=== PATIENT | male | born 1950 | race Caucasian/White ===

== ENCOUNTER 2021-08-02 23:47 | Inpatient (IN) | payer MEDICAID, OTHER ==
[~2021-08-02] VITALS: Ht 167.6 cm; Wt 71.7 kg
[2021-08-03] VITALS (7 sets, daily range): BP systolic 87–108; BP diastolic 53–80
[2021-08-03 00:27] LABS: BASOPHILS % 0.9 % (0.0-2.0); EOSINOPHILS % 0.9 % (0.0-5.0); HEMATOCRIT. 31.8 % (42.0-52.0); LYMPHOCYTES % 30.7 % (20.0-50.0); MEAN CORPUSCULAR HEMOGLOBIN 29.6 pg (28.0-32.0); MEAN CORPUSCULAR VOLUME 93.8 fL (80.0-94.0); MEAN PLATELET VOLUME 8.9 fl (7.4-10.4); MONOCYTES % 7.1 % (2.0-8.0); NEUTROPHILS % 60.4 % (40.0-76.0); PLATELET 260 x1000/uL (130-400); RED BLOOD CELL COUNT 3.39 mill/uL (4.7-6.1); RED CELL DISTRIBUTION WIDTH 19.3 % (11.6-14.6)
[2021-08-03 00:37] LABS: CHLORIDE 109 mEq/L (98-107)
[2021-08-03] MEDS ORDERED: NITROGLYCERIN OINT 1GM/INCH UDPKT TD ONE (01:00)
[2021-08-03] MEDS ORDERED: ASPIRIN 81MG TABLET PO ONE (01:00)
[2021-08-03] MEDS ORDERED: FUROSEMIDE 40MG/4ML VIAL IV ONE (01:00)
[2021-08-03 01:39] LABS: BG CARBOXYHEMOGLOBIN 0.3 % (0.5-1.5); BG DEOXYHEMOGLOBIN 0.7 % (0.0-5.0); BG FRACTION INSPIRED OXYGEN 100; BG HCO3 ACT 20.1 mmol/L (22.0-26.0); BG METHEMOGLOBIN 0.4 % (0.0-1.5); BG OXYGEN SATURATION 99.3 % (92.0-98.5); BG OXYHEMOGLOBIN 98.6 % (94.0-97.0); BG PCO2 37.1 mmHg (35.0-45.0); BG PH 7.351 (7.350-7.450); BG PO2 236.8 mmHg (75.0-100.0); BG SAMPLE SITE RIGHT RADIAL; BG TOTAL HEMOGLOBIN 10.5 g/dL (12.0-18.0); BG VENT MODE MASK - BIPAP
[2021-08-03 01:56] LABS: CLARITY URINE CLEAR (CLEAR); COLOR URINE YELLOW (YELLOW); KETONES URINE NEGATIVE (NEGATIVE); LEUKOCYTE ESTERASE URINE NEGATIVE (NEGATIVE); NITRITE URINE NEGATIVE (NEGATIVE); OCCULT BLOOD URINE NEGATIVE (NEGATIVE); PROTEIN URINE NEGATIVE (NEGATIVE); SPECIFIC GRAVITY URINE 1.009 (1.005-1.030); UROBILINOGEN URINE 0.2 E.U./dL (0.2-1.0)
[2021-08-03] MEDS ORDERED: ACETAMINOPHEN 325MG TABLET PO PRN ×2 (11:30)
[2021-08-03] MEDS ORDERED: LORAZEPAM 0.5MG TABLET PO PRN (11:30)
[2021-08-03] MEDS ORDERED: ONDANSETRON HCL 4MG/2ML INJ IV PRN (11:30)
[2021-08-03] MEDS ORDERED: HYDROCODONE/ACETAMINOPHEN 5/325MG TABLET PO PRN (11:30)
[2021-08-03] MEDS ORDERED: IPRATROPIUM/ALBUTEROL 0.5-3(2.5)MG/3ML NEB HHN PRN (11:30)
[2021-08-03] MEDS ORDERED: DOCUSATE SODIUM 100MG CAPSULE PO PRN (11:30)
[2021-08-03] MEDS ORDERED: CLONIDINE 0.1MG TABLET PO PRN (11:30)
[2021-08-03] MEDS ORDERED: DEXTROSE 50% WATER 50ML SYRINGE IV PRN (11:45)
[2021-08-03] MEDS ORDERED: NALOXONE HCL 0.4MG/ML VIAL IV PRN (12:00)
[2021-08-03] MEDS ORDERED: FLUTICASONE PROPIONATE 50MCG/SPRAY BOTTLE BOTHNSTRLS ONE (12:15)
[2021-08-03] MEDS: FUROSEMIDE 40MG/4ML VIAL IV SCH ×2 (12:33→17:40)
[2021-08-03] MEDS: INSULIN LISPRO 100 UNITS/ML SUBCUT SCH ×3 (12:45→20:57)
[2021-08-03] MEDS: BLOOD SUGAR DIAGNOSTIC STRIP TEST SCH ×3 (12:45→20:36)
[2021-08-03 14:30] LABS: METHADONE URINE SCREEN NEGATIVE (NEGATIVE)
[2021-08-03 14:31] LABS: *AMPHETAMINES SCREEN URINE NEGATIVE (NEGATIVE); CANNABINOID URINE SCREEN NEGATIVE (NEGATIVE); OPIATES URINE SCREEN NEGATIVE (NEGATIVE); PHENCYCLIDINE URINE SCREEN NEGATIVE (NEGATIVE)
[2021-08-03 14:32] LABS: *BARBITURATES SCREEN URINE NEGATIVE (NEGATIVE); *BENZODIAZEPINES SCREEN URINE NEGATIVE (NEGATIVE); *COCAINE SCREEN URINE NEGATIVE (NEGATIVE)
[2021-08-03] MEDS: FLUTICASONE PROPIONATE 50MCG/SPRAY BOTTLE BOTHNSTRLS SCH ×2 (15:07→22:54)
[2021-08-03] MEDS ORDERED: INFLUENZA VACCINE 05/PF 0.5 ML SYRINGE IM ONE (17:15)
[2021-08-03] MEDS ORDERED: ASPI-1497 PO (17:22)
[2021-08-03] MEDS ORDERED: FAMO20TA8 PO (17:23)
[2021-08-03] MEDS ORDERED: ATOR-2 PO (17:23)
[2021-08-03] MEDS ORDERED: FURO40TA5 PO (17:24)
[2021-08-03] MEDS: ASPIRIN 81MG EC TABLET PO SCH (17:41)
[2021-08-03] MEDS: IPRATROPIUM/ALBUTEROL 0.5-3(2.5)MG/3ML NEB HHN SCH (20:34)
[2021-08-03] MEDS: ATORVASTATIN CALCIUM 40MG TABLET PO SCH (20:36)
[2021-08-03 21:08] LABS: CREATINE KINASE MB FRACTION 2.6 ng/mL (0.5-3.6)
[2021-08-04] VITALS (12 sets, daily range): BP systolic 86–104; BP diastolic 33–70
[2021-08-04 04:58] LABS: BASOPHILS % 0.8 % (0.0-2.0); EOSINOPHILS % 1.3 % (0.0-5.0); HEMATOCRIT. 28.5 % (42.0-52.0); HEMOGLOBIN. 9.2 g/dL (14.0-18.0); LYMPHOCYTES % 22.4 % (20.0-50.0); MEAN CORPUSCULAR HEMOGLOBIN 29.6 pg (28.0-32.0); MEAN CORPUSCULAR VOLUME 91.2 fL (80.0-94.0); MEAN PLATELET VOLUME 9.2 fl (7.4-10.4); MONOCYTES % 10.8 % (2.0-8.0); NEUTROPHILS % 64.7 % (40.0-76.0); PLATELET 238 x1000/uL (130-400); RED BLOOD CELL COUNT 3.12 mill/uL (4.7-6.1); RED CELL DISTRIBUTION WIDTH 18.2 % (11.6-14.6)
[2021-08-04 05:08] LABS: PHOSPHORUS 4.2 mg/dL (2.5-4.9)
[2021-08-04] MEDS: FUROSEMIDE 40MG/4ML VIAL IV SCH ×2 (06:19→17:49)
[2021-08-04] MEDS: BLOOD SUGAR DIAGNOSTIC STRIP TEST SCH ×4 (07:30→21:50)
[2021-08-04] MEDS: INSULIN LISPRO 100 UNITS/ML SUBCUT SCH ×4 (08:00→21:50)
[2021-08-04] MEDS: IPRATROPIUM/ALBUTEROL 0.5-3(2.5)MG/3ML NEB HHN SCH ×5 (08:46→21:01)
[2021-08-04] MEDS: FLUTICASONE PROPIONATE 50MCG/SPRAY BOTTLE BOTHNSTRLS SCH ×2 (09:06→21:49)
[2021-08-04] MEDS: ASPIRIN 81MG EC TABLET PO SCH (09:06)
[2021-08-04] MEDS ORDERED: SPIR25TA6 MT (12:37)
[2021-08-04] MEDS: ATORVASTATIN CALCIUM 40MG TABLET PO SCH (21:49)
[2021-08-05] VITALS (12 sets, daily range): BP systolic 88–110; BP diastolic 43–68
[2021-08-05] MEDS: IPRATROPIUM/ALBUTEROL 0.5-3(2.5)MG/3ML NEB HHN SCH ×4 (01:06→20:08)
[2021-08-05] MEDS: BLOOD SUGAR DIAGNOSTIC STRIP TEST SCH ×4 (07:30→21:00)
[2021-08-05] MEDS: INSULIN LISPRO 100 UNITS/ML SUBCUT SCH ×5 (08:00→21:01)
[2021-08-05 08:25] LABS: BASOPHILS % 0.7 % (0.0-2.0); EOSINOPHILS % 1.8 % (0.0-5.0); HEMATOCRIT. 30.9 % (42.0-52.0); HEMOGLOBIN. 10.3 g/dL (14.0-18.0); LYMPHOCYTES % 19.3 % (20.0-50.0); MEAN CORPUSCULAR HEMOGLOBIN 29.5 pg (28.0-32.0); MEAN CORPUSCULAR VOLUME 88.9 fL (80.0-94.0); MEAN PLATELET VOLUME 8.9 fl (7.4-10.4); MONOCYTES % 10.8 % (2.0-8.0); NEUTROPHILS % 67.4 % (40.0-76.0); PLATELET 250 x1000/uL (130-400); RED BLOOD CELL COUNT 3.47 mill/uL (4.7-6.1); RED CELL DISTRIBUTION WIDTH 18.1 % (11.6-14.6)
[2021-08-05] MEDS: FUROSEMIDE 40MG/4ML VIAL IV SCH ×2 (09:41→18:41)
[2021-08-05] MEDS: ASPIRIN 81MG EC TABLET PO SCH (09:49)
[2021-08-05] MEDS: FLUTICASONE PROPIONATE 50MCG/SPRAY BOTTLE BOTHNSTRLS SCH ×2 (09:50→20:56)
[2021-08-05] MEDS: ATORVASTATIN CALCIUM 40MG TABLET PO SCH (20:55)
[2021-08-06] VITALS (8 sets, daily range): BP systolic 89–101; BP diastolic 54–72
[2021-08-06] MEDS: IPRATROPIUM/ALBUTEROL 0.5-3(2.5)MG/3ML NEB HHN SCH ×2 (07:23→13:30)
[2021-08-06] MEDS: BLOOD SUGAR DIAGNOSTIC STRIP TEST SCH ×2 (07:30→12:30)
[2021-08-06 07:54] LABS: BASOPHILS % 0.8 % (0.0-2.0); EOSINOPHILS % 3.2 % (0.0-5.0); HEMATOCRIT. 31.3 % (42.0-52.0); HEMOGLOBIN. 10.4 g/dL (14.0-18.0); LYMPHOCYTES % 19.9 % (20.0-50.0); MEAN CORPUSCULAR HEMOGLOBIN 29.6 pg (28.0-32.0); MEAN CORPUSCULAR VOLUME 88.9 fL (80.0-94.0); MEAN PLATELET VOLUME 8.8 fl (7.4-10.4); MONOCYTES % 11.9 % (2.0-8.0); NEUTROPHILS % 64.2 % (40.0-76.0); PLATELET 297 x1000/uL (130-400); RED BLOOD CELL COUNT 3.52 mill/uL (4.7-6.1); RED CELL DISTRIBUTION WIDTH 17.8 % (11.6-14.6)
[2021-08-06] MEDS: INSULIN LISPRO 100 UNITS/ML SUBCUT SCH ×2 (08:00→13:00)
[2021-08-06] MEDS: FLUTICASONE PROPIONATE 50MCG/SPRAY BOTTLE BOTHNSTRLS SCH (08:59)
[2021-08-06] MEDS: ASPIRIN 81MG EC TABLET PO SCH (08:59)
[2021-08-06] MEDS: FUROSEMIDE 40MG/4ML VIAL IV SCH (08:59)
== END 2021-08-06 21:54 | disposition home or self-care (01) | DRG 194 ==
LOC: EDBD 23:47 → ER 23:47 → 5EST 08-03 01:48 → ENRESERV 08-03 07:28
PROVIDERS: ADMIT Internal Medicine; ATTEND Internal Medicine
PROC: 5A09357 Assistance with Respiratory Ventilation, Less than 24 Consecutive Hours, Continuous Positive Airway Pressure (ICD-10-PCS; principal; 2021-08-03)
DX: I13.0 Hypertensive heart and chronic kidney disease with heart failure and stage 1 through stage 4 chronic kidney disease, or unspecified chronic kidney disease (principal); J96.01 Acute respiratory failure with hypoxia; E44.0 Moderate protein-calorie malnutrition; I27.20 Pulmonary hypertension, unspecified; I95.9 Hypotension, unspecified; N17.9 Acute kidney failure, unspecified; Z95.1 Presence of aortocoronary bypass graft; I69.354 Hemiplegia and hemiparesis following cerebral infarction affecting left non-dominant side; D64.9 Anemia, unspecified; S51.801A Unspecified open wound of right forearm, initial encounter; Z20.822 Contact with and (suspected) exposure to COVID-19; I25.5 Ischemic cardiomyopathy; E78.5 Hyperlipidemia, unspecified; I25.118 Atherosclerotic heart disease of native coronary artery with other forms of angina pectoris; D72.829 Elevated white blood cell count, unspecified; I45.81 Long QT syndrome; I08.1 Rheumatic disorders of both mitral and tricuspid valves; N18.2 Chronic kidney disease, stage 2 (mild); R79.89 Other specified abnormal findings of blood chemistry; I50.43 Acute on chronic combined systolic (congestive) and diastolic (congestive) heart failure; X58.XXXA Exposure to other specified factors, initial encounter; Y93.89 Activity, other specified; Y92.89 Other specified places as the place of occurrence of the external cause; I25.2 Old myocardial infarction; Z68.25 Body mass index [BMI] 25.0-25.9, adult; Y99.8 Other external cause status
CPT/HCPCS: 36415; 36600; 71045; 78580; 80048; 80053; 80305; 81003; 82375; 82550; 82553; 82805; 82962; 83036; 83735; 83880; 84100; 84484; 85025; 85379; 87426; 90686; 93005; 93306; 93970; 94640; 94660; 99291; J1815; J1940